=== PATIENT | female | born 1995 | race Two or more races ===

== ENCOUNTER 2018-09-23 19:42 | Emergency (ER) | payer OTHER ==
[~2018-09-23] VITALS: Ht 167.6 cm; Wt 64.0 kg
[2018-09-23 19:51] VITALS: BP 119/65
[2018-09-23] MEDS ORDERED: LIDOCAINE MPF 1%-EPI 1:200,000 30 ML VIAL IJ ONE (20:29)
[2018-09-23] MEDS ORDERED: TDAP [DIPH/PERTUSSIS/TET] 0.5 ML VIAL IM ONE ×2 (20:30→20:31)
[2018-09-23] MEDS ORDERED: LIDOCAINE 1%-EPI 1:100,000 20 ML VIAL TP ONE (20:30)
== END 2018-09-23 21:30 | disposition home or self-care (01) ==
LOC: EDBD 19:51 → ER 19:51
DX: L05.01 Pilonidal cyst with abscess (principal)
CPT/HCPCS: 10080; 90471; 90715; 99284; A6402; A6403; A6407; J3490

== ENCOUNTER 2020-09-01 22:09 | Emergency (ER) | payer OTHER ==
[~2020-09-01] VITALS: Ht 165.1 cm; Wt 59.4 kg
--- NOTE | 2020-09-01 22:27 | NUR ---
THE PATIENT BIBS FOR C/O UPPER AND LOWER EXTREMITY RASH AND ITCHING X2 WEEK. DENIES ANY PAIN. RESPIRATION REGULAR AND UNLABORED. DENIES SOB. WILL CONTINUE TO MONITOR THE PATIENT.
[2020-09-01 22:46] LABS: BASOPHILS # (AUTO) 0.1 /CMM (0.0-0.2); BASOPHILS % (AUTO) 0.8 % (0.0-2.0); EOSINOPHILS % (AUTO) 4.4 % (0.0-6.0); HEMATOCRIT 39 % (33-45); HEMOGLOBIN 12.7 g/dL (11.5-14.8); LYMPHOCYTES # (AUTO) 2.4 /CMM (0.8-4.8); LYMPHOCYTES % (AUTO) 18.6 % (20.0-44.0); MEAN CORPUSCULAR HGB CONC 33 g/dl (31.0-36.0); MEAN CORPUSCULAR VOLUME 81 fL (82-100); MONOCYTES # (AUTO) 0.8 /CMM (0.1-1.30); MONOCYTES % (AUTO) 5.9 % (2.0-12.0); NEUTROPHILS # (AUTO) 9.2 /CMM (1.8-8.9); NEUTROPHILS % (AUTO) 70.3 % (43.0-81.0); PLATELET COUNT (AUTO) 339 /CMM (150-450); RED BLOOD CELL COUNT(AUTO) 4.76 MIL/uL (4.0-5.2); WHITE BLOOD COUNT (AUTO) 13.1 K/uL (4.3-11.0)
[2020-09-01 22:54] LABS: CALCIUM, SERUM 8.9 mg/dL (8.5-10.1); CREATININE 0.7 mg/dL (0.6-1.3); POTASSIUM 3.9 mmol/L (3.5-5.1)
[2020-09-01] MEDS ORDERED: HYDR453.3 TP (23:18)
--- NOTE | 2020-09-01 23:35 | NUR ---
Patient discharged to home in stable condition. Written and verbal after care instructions given. Patient verbalizes understanding of instruction.
[2020-09-01 23:41] VITALS: BP 124/63
== END 2020-09-01 23:41 | disposition home or self-care (01) ==
LOC: ER 22:12
DX: L29.9 Pruritus, unspecified (principal)
CPT/HCPCS: 36415; 80048-TC; 85025-TC

== ENCOUNTER 2022-12-07 00:22 | Emergency (ER) | payer MEDICAID, OTHER ==
[~2022-12-07] VITALS: Ht 170.2 cm; Wt 63.5 kg
[~2022-12-07 00:22] MED LIST: HYDR453.3 TP
[2022-12-07 00:37] VITALS: BP 113/68; TEMP 98.1; O2SAT 100
== END 2022-12-07 02:44 | disposition home or self-care (01) ==
LOC: ER 00:25
DX: M25.571 Pain in right ankle and joints of right foot (principal); X50.1XXA Overexertion from prolonged static or awkward postures, initial encounter; Y93.68 Activity, volleyball (beach) (court); Y92.89 Other specified places as the place of occurrence of the external cause; Y99.8 Other external cause status
CPT/HCPCS: 73610-TC; 73630-TC